=== PATIENT | female | born 1950 | race Caucasian/White ===

== ENCOUNTER 2022-05-24 19:10 | Inpatient (IN) | payer OTHER ==
[~2022-05-24] VITALS: Ht 142.2 cm; Wt 57.6 kg
[2022-05-24] MEDS ORDERED: ONDANSETRON HCL 4MG/2ML INJ IV STA (19:48)
[2022-05-24] MEDS ORDERED: SODIUM CHLORIDE 0.9% 500 ML IV ONE (20:00)
[2022-05-24 20:08] LABS: HEMATOCRIT. 37.5 % (36.0-48.0); HEMOGLOBIN. 12.8 g/dL (12.0-16.0); MEAN CORPUSCULAR HEMOGLOBIN 30.2 pg (28.0-32.0); MEAN CORPUSCULAR VOLUME 88.6 fL (81.0-99.0); MEAN PLATELET VOLUME 6.8 fl (7.4-10.4); PLATELET 387 x1000/uL (130-400); RED BLOOD CELL COUNT 4.23 mill/uL (4.2-5.4); RED CELL DISTRIBUTION WIDTH 13.9 % (11.6-14.6)
[2022-05-24 20:22] LABS: CHLORIDE 108 mEq/L (98-107)
[2022-05-24 20:29] LABS: PLATELET ESTIMATE NORMAL
[2022-05-24 20:34] LABS: CLARITY URINE CLEAR (CLEAR); COLOR URINE YELLOW (YELLOW); KETONES URINE TRACE (NEGATIVE); LEUKOCYTE ESTERASE URINE NEGATIVE (NEGATIVE); NITRITE URINE NEGATIVE (NEGATIVE); OCCULT BLOOD URINE 1+ (NEGATIVE); PROTEIN URINE 1+ (NEGATIVE); SPECIFIC GRAVITY URINE 1.025 (1.005-1.030); UROBILINOGEN URINE 0.2 E.U./dL (0.2-1.0)
[2022-05-24] MEDS ORDERED: CEFTRIAXONE 1 G PREMIX 50 ML IV NR (21:30)
[2022-05-24] MEDS ORDERED: VANCOMYCIN 1G PREMIX 200 ML IV ONE (23:30)
[2022-05-24] MEDS ORDERED: SODIUM CHLORIDE 0.9% 1000ML BAG (SEPSIS BOLUS) IV ONE (23:30)
[2022-05-25] VITALS (20 sets, daily range): BP systolic 91–147; BP diastolic 38–72
[2022-05-25] MEDS ORDERED: ASPIRIN 325MG TABLET PO NR
[2022-05-25] MEDS ORDERED: ENOXAPARIN 40MG/0.4ML SYR SUBCUT NR
[2022-05-25] MEDS ORDERED: ACETAMINOPHEN 325MG TABLET PO PRN ×2 (09:15→11:15)
[2022-05-25] MEDS ORDERED: ONDANSETRON HCL 4MG/2ML INJ IV PRN (09:15)
[2022-05-25] MEDS ORDERED: ATROPINE SULFATE 1MG/10ML SYR ONE (09:34)
[2022-05-25] MEDS ORDERED: HEPARIN 1000 UNITS/ML 10ML ONE (09:35)
[2022-05-25] MEDS ORDERED: EPINEPHRINE 0.1MG/ML (1:10,000) 10ML SYR ONE (09:35)
[2022-05-25] MEDS ORDERED: LIDOCAINE HCL/PF 2% 20MG/ML 5 ML/VIAL ONE (09:35)
[2022-05-25] MEDS ORDERED: IODIXANOL 320MG/ML 100 ML BOTTLE IV ONE (09:35)
[2022-05-25] MEDS ORDERED: MIDAZOLAM HCL 2 MG/2 ML VIAL ONE (09:36)
[2022-05-25] MEDS ORDERED: FENTANYL CITRATE/PF 50MCG/ML 2ML VIAL ONE (09:36)
[2022-05-25] MEDS ORDERED: ONDANSETRON HCL 4MG/2ML INJ ONE (10:47)
[2022-05-25] MEDS ORDERED: ATROPINE SULFATE 1MG/10ML SYR IV PRN (11:15)
[2022-05-25 13:16] LABS: BASOPHILS % 0.1 % (0.0-2.0); EOSINOPHILS % 0.1 % (0.0-5.0); HEMATOCRIT. 33.2 % (36.0-48.0); HEMOGLOBIN. 11.1 g/dL (12.0-16.0); LYMPHOCYTES % 10.3 % (20.0-50.0); MEAN CORPUSCULAR VOLUME 89.6 fL (81.0-99.0); NEUTROPHILS % 84.5 % (40.0-76.0); PLATELET 326 x1000/uL (130-400); RED BLOOD CELL COUNT 3.71 mill/uL (4.2-5.4); RED CELL DISTRIBUTION WIDTH 13.8 % (11.6-14.6)
[2022-05-25 13:42] LABS: CHLORIDE 109 mEq/L (98-107)
[2022-05-25] MEDS: ATORVASTATIN CALCIUM 40MG TABLET PO SCH (21:49)
[2022-05-26] VITALS (12 sets, daily range): BP systolic 102–138; BP diastolic 45–81
[2022-05-26 06:34] LABS: BASOPHILS % 0.4 % (0.0-2.0); EOSINOPHILS % 0.8 % (0.0-5.0); HEMATOCRIT. 30.4 % (36.0-48.0); HEMOGLOBIN. 10.8 g/dL (12.0-16.0); LYMPHOCYTES % 21.9 % (20.0-50.0); MEAN CORPUSCULAR VOLUME 87.3 fL (81.0-99.0); MEAN PLATELET VOLUME 7.1 fl (7.4-10.4); MONOCYTES % 8.1 % (2.0-8.0); NEUTROPHILS % 68.8 % (40.0-76.0); PLATELET 308 x1000/uL (130-400); RED BLOOD CELL COUNT 3.48 mill/uL (4.2-5.4); RED CELL DISTRIBUTION WIDTH 14.1 % (11.6-14.6)
[2022-05-26 06:39] LABS: CHLORIDE 109 mEq/L (98-107)
[2022-05-26 06:57] LABS: HDL CHOLESTEROL 31 mg/dL (40-59); LDL CHOLESTEROL 74 mg/dL (5-100)
[2022-05-26] MEDS ORDERED: ASPI-1406 PO (07:49)
[2022-05-26] MEDS ORDERED: LIP40 PO (07:49)
[2022-05-26] MEDS: CLOPIDOGREL 75MG TABLET PO SCH (07:49)
[2022-05-26] MEDS ORDERED: CLOP75TA15 PO (07:49)
[2022-05-26] MEDS: ASPIRIN 81MG EC TABLET PO SCH ×3 (07:50→17:21)
[2022-05-26] MEDS ORDERED: POTASSIUM CHLORIDE 20MEQ TABLET SR PO NR (08:00)
[2022-05-26 13:03] LABS: TOTAL IRON BINDING CAPACITY 297 ug/dL (250-450)
[2022-05-26] MEDS: ATORVASTATIN CALCIUM 40MG TABLET PO SCH (21:08)
[2022-05-27 00:02] VITALS: BP 131/50
[2022-05-27 04:14] VITALS: BP 105/45
[2022-05-27 06:54] LABS: CHLORIDE 107 mEq/L (98-107)
[2022-05-27 07:11] LABS: BASOPHILS % 0.5 % (0.0-2.0); EOSINOPHILS % 1.3 % (0.0-5.0); HEMATOCRIT. 33.6 % (36.0-48.0); HEMOGLOBIN. 11.9 g/dL (12.0-16.0); LYMPHOCYTES % 18.7 % (20.0-50.0); MEAN CORPUSCULAR HEMOGLOBIN 31.3 pg (28.0-32.0); MEAN CORPUSCULAR VOLUME 88.4 fL (81.0-99.0); MEAN PLATELET VOLUME 6.9 fl (7.4-10.4); MONOCYTES % 8.8 % (2.0-8.0); NEUTROPHILS % 70.7 % (40.0-76.0); PLATELET 298 x1000/uL (130-400); RED BLOOD CELL COUNT 3.81 mill/uL (4.2-5.4); RED CELL DISTRIBUTION WIDTH 13.9 % (11.6-14.6)
[2022-05-27 07:56] LABS: VITAMIN B12 SERUM 192 pg/mL (211-911)
[2022-05-27 08:00] VITALS: BP 118/66
[2022-05-27] MEDS: ASPIRIN 81MG EC TABLET PO SCH (10:52)
[2022-05-27] MEDS: CLOPIDOGREL 75MG TABLET PO SCH (10:52)
[2022-05-27 11:08] VITALS: BP 118/66
== END 2022-05-27 12:10 | disposition home or self-care (01) | DRG 174 ==
LOC: ER 19:10 → MICUSO 23:28 → EDBEDREQSVC 23:32 → EDBEDREQTM 23:32 → EDBEDREQ 23:32 → CVICU 05-25 11:31 → 3WST 05-26 06:09
PROVIDERS: ADMIT Internal Medicine; ATTEND Internal Medicine
PROC: 02703DZ Dilation of Coronary Artery, One Artery with Intraluminal Device, Percutaneous Approach (ICD-10-PCS; principal; 2022-05-25)
PROC: 4A023N7 Measurement of Cardiac Sampling and Pressure, Left Heart, Percutaneous Approach (ICD-10-PCS; 2022-05-25)
PROC: B211YZZ Fluoroscopy of Multiple Coronary Arteries using Other Contrast (ICD-10-PCS; 2022-05-25)
DX: I21.19 ST elevation (STEMI) myocardial infarction involving other coronary artery of inferior wall (principal); E11.9 Type 2 diabetes mellitus without complications; I25.10 Atherosclerotic heart disease of native coronary artery without angina pectoris; E78.5 Hyperlipidemia, unspecified; I10 Essential (primary) hypertension; Z90.710 Acquired absence of both cervix and uterus; Z79.899 Other long term (current) drug therapy; Z79.4 Long term (current) use of insulin; Z20.822 Contact with and (suspected) exposure to COVID-19
CPT/HCPCS: 36415; 71045; 80048; 80053; 80061; 81003; 82270; 82607; 82962; 83540; 83550; 83605; 83735; 83880; 84145; 84443; 84484; 85025; 85044; 85347; 87426; 92928; 93005; 93306; 93454; 99291; C1725; C1769; C1874; C1887; C1893; C9803; J0461; J0696; J1644; J1650; J2250; J2405; J3010; J3370; J3490; J7030; Q9967

== ENCOUNTER 2022-06-01 11:12 | Emergency (ER) | payer OTHER ==
[~2022-06-01 11:12] MED LIST: ASPI-1406 PO; CLOP75TA15 PO; LIP40 PO
== END 2022-06-01 11:25 | disposition left against medical advice (07) ==
LOC: ER 11:17
DX: Z53.21 Procedure and treatment not carried out due to patient leaving prior to being seen by health care provider (principal)

== ENCOUNTER 2022-06-12 12:31 | Emergency (ER) | payer OTHER ==
[~2022-06-12] VITALS: Ht 154.9 cm; Wt 60.0 kg
[2022-06-12 15:25] LABS: BASOPHILS % 0.4 % (0.0-2.0); EOSINOPHILS % 0.9 % (0.0-5.0); HEMATOCRIT. 38.2 % (36.0-48.0); HEMOGLOBIN. 13.2 g/dL (12.0-16.0); LYMPHOCYTES % 18.1 % (20.0-50.0); MEAN CORPUSCULAR HEMOGLOBIN 30.3 pg (28.0-32.0); MEAN CORPUSCULAR VOLUME 87.8 fL (81.0-99.0); MEAN PLATELET VOLUME 6.7 fl (7.4-10.4); MONOCYTES % 5.1 % (2.0-8.0); NEUTROPHILS % 75.5 % (40.0-76.0); PLATELET 385 x1000/uL (130-400); RED BLOOD CELL COUNT 4.35 mill/uL (4.2-5.4); RED CELL DISTRIBUTION WIDTH 13.7 % (11.6-14.6)
[2022-06-12 15:30] LABS: CHLORIDE 104 mEq/L (98-107)
[2022-06-12 15:39] LABS: ETHANOL BLOOD < 10 mg/dL
[2022-06-12] MEDS ORDERED: POTASSIUM CHLORIDE 20MEQ TABLET SR PO NR (16:00)
[2022-06-12 16:14] LABS: CLARITY URINE CLEAR (CLEAR); COLOR URINE YELLOW (YELLOW); KETONES URINE NEGATIVE (NEGATIVE); LEUKOCYTE ESTERASE URINE TRACE (NEGATIVE); NITRITE URINE POSITIVE (NEGATIVE); OCCULT BLOOD URINE TRACE (NEGATIVE); PH URINE 5.5 (4.5-8.0); PROTEIN URINE TRACE (NEGATIVE); SPECIFIC GRAVITY URINE 1.018 (1.005-1.030); UROBILINOGEN URINE 0.2 E.U./dL (0.2-1.0)
[2022-06-12 16:35] LABS: *AMPHETAMINES SCREEN URINE NEGATIVE (NEGATIVE); *BARBITURATES SCREEN URINE NEGATIVE (NEGATIVE); *BENZODIAZEPINES SCREEN URINE NEGATIVE (NEGATIVE); *COCAINE SCREEN URINE NEGATIVE (NEGATIVE); CANNABINOID URINE SCREEN NEGATIVE (NEGATIVE); METHADONE URINE SCREEN NEGATIVE (NEGATIVE); OPIATES URINE SCREEN NEGATIVE (NEGATIVE); PHENCYCLIDINE URINE SCREEN NEGATIVE (NEGATIVE)
[2022-06-12 19:58] VITALS: BP 162/68
[2022-06-12] MEDS ORDERED: ATORVASTATIN CALCIUM 20MG TABLET PO SCH (21:00)
[2022-06-13] MEDS ORDERED: ASPIRIN 81MG TABLET PO SCH (09:00)
[2022-06-13] MEDS ORDERED: CLOPIDOGREL 75MG TABLET PO SCH (09:00)
== END 2022-06-12 20:20 | disposition short-term general hospital (02) ==
LOC: ER 12:31 → CANBEDREQ 17:04 → ER 20:20
DX: M79.89 Other specified soft tissue disorders (principal); E11.9 Type 2 diabetes mellitus without complications; I10 Essential (primary) hypertension; Z90.710 Acquired absence of both cervix and uterus; Z20.822 Contact with and (suspected) exposure to COVID-19
CPT/HCPCS: 36415; 71045; 80053; 80305; 80320; 81003; 83880; 84484; 85025; 87426; 93005; 99291; C9803; Z7610; G0480

== ENCOUNTER 2023-12-27 07:30 | Emergency (ER) | payer MEDICAID, OTHER ==
[~2023-12-27] VITALS: Ht 157.5 cm; Wt 77.0 kg
[2023-12-27 07:34] VITALS: TEMP 97.7; O2SAT 99
[2023-12-27 08:01] LABS: BASOPHILS % 0.3 % (0.0-2.0); EOSINOPHILS % 1.3 % (0.0-5.0); HEMATOCRIT. 37.7 % (36.0-48.0); HEMOGLOBIN. 12.9 g/dL (12.0-16.0); MEAN CORPUSCULAR HEMOGLOBIN 30.3 pg (28.0-32.0); MEAN CORPUSCULAR HGB CONC 34.1 g/dL (31.0-37.0); MEAN CORPUSCULAR VOLUME 88.7 fL (81.0-99.0); MEAN PLATELET VOLUME 6.8 fl (7.4-10.4); NEUTROPHILS % 66.4 % (40.0-76.0); PLATELET 329 x1000/uL (130-400); RED BLOOD CELL COUNT 4.25 mill/uL (4.2-5.4); RED CELL DISTRIBUTION WIDTH 14.2 % (11.6-14.6); WHITE BLOOD COUNT 7.3 x1000/uL (4.5-11.0)
[2023-12-27 08:09] LABS: CHLORIDE 107 mEq/L (98-107); POTASSIUM 3.2 mEq/L (3.5-5.1); SODIUM 139 mEq/L (136-145)
[2023-12-27 08:10] LABS: CALCIUM 9.3 mg/dL (8.7-10.4); CARBON DIOXIDE 25 mEq/L (21-32)
[2023-12-27 08:15] LABS: GLUCOSE 176 mg/dL (70-105); UREA NITROGEN BLOOD 20 mg/dL (9-23)
[2023-12-27 08:27] LABS: TROPONIN I HIGH SENSITIVITY < 4 ng/L (3.0-34)
[2023-12-27 10:43] LABS: CLARITY URINE CLEAR (CLEAR); COLOR URINE YELLOW (YELLOW); GLUCOSE URINE TRACE (NEGATIVE); KETONES URINE NEGATIVE (NEGATIVE); LEUKOCYTE ESTERASE URINE TRACE (NEGATIVE); NITRITE URINE NEGATIVE (NEGATIVE); OCCULT BLOOD URINE TRACE (NEGATIVE); PH URINE 5.5 (4.5-8.0); PROTEIN URINE 1+ (NEGATIVE); SPECIFIC GRAVITY URINE 1.018 (1.005-1.030); UROBILINOGEN URINE 0.2 E.U./dL (0.2-1.0)
[2023-12-27 10:59] LABS: BACTERIA URINE 1+; RBC URINE 0-2 /hpf (0-2); SQUAMOUS EPITHELIAL CELL URINE FEW /lpf (RARE/1+); YEAST URINE NONE SEEN
[2023-12-27] MEDS ORDERED: LOPE2CAP MT (12:08)
[2023-12-27] MEDS ORDERED: CIPR500T5 MT (12:08)
[2023-12-27] MEDS ORDERED: POTASSIUM CHLORIDE 20MEQ/PACKET PO ONE (12:15)
[2023-12-27 12:24] VITALS: BP 160/64; PULSE 64; RESP 17; O2SAT 100
== END 2023-12-27 12:26 | disposition home or self-care (01) ==
LOC: ER 07:30
DX: N39.0 Urinary tract infection, site not specified (principal); E87.6 Hypokalemia; E11.9 Type 2 diabetes mellitus without complications; I10 Essential (primary) hypertension; Z88.0 Allergy status to penicillin; Z90.710 Acquired absence of both cervix and uterus
CPT/HCPCS: 80048; 81003; 83880; 85025; 84484; 36415; 71045; 70450; 93005; 99285; Z7610